=== PATIENT | female | born 1960 | race American Indian/Alaskan Native ===

== ENCOUNTER 2019-09-22 20:01 | Inpatient (IN) | payer OTHER ==
--- NOTE | 2019-09-22 21:07 | Event Note ---
ED Screening Note ED Screening Note: epigastric pain for one day intermittent, hx of hypothyroidism This initial assessment/diagnostic orders/clinical plan/treatment(s) is/are subject to change based on patients health status, clinical progression and re- assessment by fellow clinical providers in the ED. Further treatment and workup at subsequent clinical providers discretion. Patient/guardian urged not to elope from the ED as their condition may be serious if not clinically assessed and managed. Initial orders include: ekg labs
[2019-09-22 21:26] LABS: Basophils % (Auto) 0.6 % (0.0-1.8); Eosinophils # (Auto) 0.5 K/mm3 (0.0-0.4); Eosinophils % (Auto) 7.3 % (0.0-4.3); Hematocrit 35.5 % (30.3-42.9); Hemoglobin 11.6 gm/dl (10.1-14.3); Lymphocytes # (Auto) 1.8 K/mm3 (1.2-5.4); Lymphocytes % (Auto) 28.7 % (13.4-35.0); Mean Corpuscular HGB Conc 33 % (30-34); Mean Corpuscular Volume 84 fl (79-97); Monocytes # (Auto) 0.7 K/mm3 (0.0-0.8); Monocytes % (Auto) 10.5 % (0.0-7.3); Platelet Count 321 K/mm3 (140-440); Red Blood Count 4.24 M/mm3 (3.65-5.03); Red Cell Distribution Width 14.7 % (13.2-15.2)
--- NOTE | 2019-09-22 21:51 | XRay Report ---
CHEST 2 VIEWS, 09/22/2019 9:36 PM INDICATION: Chest pain for 2 days COMPARISON: Chest radiograph, 11/28/2007 FINDINGS: Support devices: None Heart: The heart is normal in size. Lungs/pleura: The lungs are clear of focal airspace disease or significant pleural effusion. Additional findings: No significant acute abnormality. IMPRESSION: 1. No evidence of acute cardiopulmonary process. Signer Name: Theresa Huynh MD Signed: 09/22/2019 9:47 PM Workstation Name: [id number]
[2019-09-22 21:52] LABS: Alanine Aminotransferase 8 units/L (7-56); Albumin 4.6 g/dL (3.9-5); BUN/Creatinine Ratio 17; Blood Urea Nitrogen 15 mg/dL (7-17); Calcium 10.7 mg/dL (8.4-10.2); Hemolysis Index 2
[2019-09-22 22:01] LABS: Bilirubin,Direct < 0.2 mg/dL (0-0.2)
[2019-09-22] MEDS ORDERED: ASPIRIN 325 MG TAB PO ONE (23:09)
[2019-09-22] MEDS ORDERED: NITROGLYCERIN 2% OINT 1 GM TP ONE (23:09)
--- NOTE | 2019-09-22 23:15 | Emergency Department Report ---
HPI - General Chief Complaint: Abdominal Pain Time Seen by Provider: 09/22/19 22:35 - HPI HPI: Room 39 Patient is a 59-year-old female present with a chief complaint of chest pain. The patient states she has had intermittent mid epigastric lower chest pain since 09/19/2019. Patient states feels like an aching/burning pain last approximate 10 minutes and goes away. Patient states each time she has the pain her left upper extremity begins to tingle. Patient denies shortness of breath, nausea/vomiting or diaphoresis. Patient states today the frequency of events increased. Patient states she had a normal stress test last month but has never had a cardiac catheterization ED Past Medical Hx - Past Medical History Previous Medical History?: Yes Additional medical history: Hypothyroidism - Surgical History Past Surgical History?: No - Family History Family history: no significant - Social History Smoking Status: Never Smoker Substance Use Type: None (Denies illicit drug use) ED Review of Systems ROS: Stated complaint: CP/SOB/TINGLE IN L ARM Other details as noted in HPI Constitutional: denies: diaphoresis Eyes: denies: eye pain ENT: denies: throat pain Respiratory: denies: shortness of breath Cardiovascular: chest pain Endocrine: no symptoms reported Gastrointestinal: denies: nausea, vomiting Genitourinary: denies: dysuria Musculoskeletal: denies: back pain Neurological: denies: headache Physical Exam - Physical Exam Vital Signs: Vital Signs 09/22/19 09/22/19 20:17 22:06 Pulse Rate 107 H Respiratory 18 18 Rate Blood Pressure 141/85 O2 Sat by Pulse 100 100 Oximetry Physical Exam: GENERAL: The patient is well-developed well-nourished female lying on stretcher not appear to be in acute distress. [] HEENT: Normocephalic. Atraumatic. Extraocular motions are intact. Patient has moist mucous membranes. NECK: Supple. Trachea midline CHEST/LUNGS: Clear to auscultation. There is no respiratory distress noted. HEART/CARDIOVASCULAR: Regular. There is no tachycardia. There is no gallop rub or murmur. ABDOMEN: Abdomen is soft, nontender. Patient has normal bowel sounds. There is no abdominal distention. SKIN: There is no rash. There is no edema. There is no diaphoresis. NEURO: The patient is awake, alert, and oriented. The patient is cooperative. The patient has normal speech MUSCULOSKELETAL: There is no evidence of acute injury. ED Course Vital Signs 09/22/19 09/22/19 20:17 22:06 Pulse Rate 107 H Respiratory 18 18 Rate Blood Pressure 141/85 O2 Sat by Pulse 100 100 Oximetry ED Medical Decision Making - Lab Data Result diagrams: 09/22/19 21:09 09/22/19 21:09 Laboratory Tests 09/22/19 09/22/19 21:09 21:09 WBC 6.3 RBC 4.24 Hgb 11.6 Hct 35.5 MCV 84 MCH 27 L MCHC 33 RDW 14.7 Plt Count 321 Lymph % (Auto) 28.7 [place] % (Auto) 10.5 H Eos % (Auto) 7.3 H Baso % (Auto) 0.6 Lymph # 1.8 [place] # 0.7 Eos # 0.5 H Baso # 0.0 Seg Neutrophils % 52.9 Seg Neutrophils # 3.3 Sodium 142 Potassium 3.7 Chloride 101.3 Carbon Dioxide 23 Anion Gap 21 BUN 15 Creatinine 0.9 Estimated GFR > 60 BUN/Creatinine Ratio 17 Glucose 143 H Calcium 10.7 H Total Bilirubin 0.30 Direct Bilirubin < 0.2 Indirect Bilirubin 0.1 AST 13 ALT 8 Alkaline Phosphatase 55 Troponin T < 0.010 Total Protein 8.1 Albumin 4.6 Albumin/Globulin Ratio 1.3 Lipase 40 - EKG Data -: EKG Interpreted by Me EKG shows normal: sinus rhythm Rate: normal - EKG Data When compared to previous EKG there are: previous EKG unavailable Interpretation: nonspecific ST-T wave joseph - Radiology Data Radiology results: report reviewed (Chest x-ray), image reviewed (Chest x-ray) interpreted by me: Chest x-ray-no focal infiltrates, no pneumothorax [facility] [address] [place] [address] XRay Report Signed Patient: NAZANIN ANGLIN MR#: [id number] : 1960 Acct:[id number] Age/Sex: 59 / F ADM Date: 09/22/19 Loc: ED Attending Dr: Ordering Physician: Marah Hernández MD Date of Service: 09/22/19 Procedure(s): XR chest routine 2V Accession Number(s): [id number] cc: Marah Hernández MD Fluoro Time In Minutes: CHEST 2 VIEWS, 09/22/2019 9:36 PM INDICATION: Chest pain for 2 days COMPARISON: Chest radiograph, 11/28/2007 FINDINGS: Support devices: None Heart: The heart is normal in size. Lungs/pleura: The lungs are clear of focal airspace disease or significant pleural effusion. Additional findings: No significant acute abnormality. IMPRESSION: 1. No evidence of acute cardiopulmonary process. Signer Name: Theresa Huynh MD Signed: 09/22/2019 9:47 PM Workstation Name: [id number] Transcribed By: EB Dictated By: Theresa Huynh MD Electronically Authenticated By: Theresa Huynh MD Signed Date/Time: 09/22/192146 DD/ 45 TD/TT: - Differential Diagnosis ACS, pericarditis, GERD Critical care attestation.: If time is entered above; I have spent that time in minutes in the direct care of this critically ill patient, excluding procedure time. ED Disposition Clinical Impression: Chest pain Disposition: -09 OP ADMIT IP TO THIS HOSP Is pt being admited?: Yes Does the pt Need Aspirin: Yes Condition: Fair Instructions: Abdominal Pain (ED), Chest Pain (ED) Time of Disposition: 23:16 (Hospitalist paged (Dr. Nkechi Laguerre))
--- NOTE | 2019-09-22 23:31 | History and Physical Report ---
History of Present Illness History of present illness: 59-year-old woman with a history of hypothyroidism comes emergency room with complaints of chest pain that started 2 days ago. Pain is in the epigastric area which she described as a achy burning sensation, was intermittent but has now become constant, intensity 4/10, no radiation, cannot identify exacerbating or relieving factors. Admits to palpitation, no nausea vomiting, shortness of breath, diaphoresis. Patient states she had a stress test 1 month ago while she was in [place], test was negative Review Of Systems: Constitutional: no weight loss, fever, chills Ears, eyes, nose, mouth and throat: no nasal congestion, no nasal discharge, no sinus pressure, blurry vision, diplopia Neck: No neck pain or rigidity. Cardiovascular: + palpitations, chest pain Respiratory: No shortness of breath, cough Gastrointestinal: No hematochezia Genitourinary : no dysuria, frequency Musculoskeletal: no muscle ache , joint pain Integumentary: no rash, no pruritis Neurological: no parathesias, focal weakness Endocrine: no cold or heat intolerance, no polyuria or polydipsia Hematologic/Lymphatic: no easy bruising, no easy bleeding, no gland swelling Allergic/Immunologic: no urticaria, no angioedema. PAST MEDICAL HISTORY: hypothyroidism PAST SURGICAL HISTORY: None SOCIAL HISTORY: Denies alcohol, tobacco, drugs FAMILY HISTORY: Hypertension Medications and Allergies Allergies Allergy/AdvReac Type Severity Reaction Status Date / Time No Known Allergies Allergy Verified 09/22/19 20:15 Exam - Physical Exam Narrative exam: Gen. appearance: Patient lying in bed, no apparent distress HEENT: Normocephalic, atraumatic, pupils equally round and reactive to light, extraocular movement intact, and no sclericterus,. No JVD or thyromegaly or nodule,neck supple, no carotid bruit ,mucous membranes moist, no exudate or erythema Heart: S1, S2, regular rate and rhythm Lungs: Clear bilaterally, breathing comfortable Abdomen: Positive bowel sounds, nontender, nondistended, no organomegaly Extremity: no edema, cyanosis, clubbing Skin: No rash, nodules, warm, dry Neuro: speech is fluent, cranial nerves II to XII intact, motor and sensory intact - Constitutional Vitals: Temp Pulse Resp BP Pulse Ox 107 H 18 141/85 100 09/22/19 20:17 09/22/19 22:06 09/22/19 20:17 09/22/19 22:06 Results - Labs CBC & Chem 7: 09/22/19 21:09 09/22/19 21:09 Labs: Abnormal lab results 09/22/19 09/22/19 Range/Units 21:09 21:09 MCH 27 L (28-32) pg [place] % (Auto) 10.5 H (0.0-7.3) % Eos % (Auto) 7.3 H (0.0-4.3) % Eos # 0.5 H (0.0-0.4) K/mm3 Glucose 143 H (65-100) mg/dL Calcium 10.7 H (8.4-10.2) mg/dL - Imaging and Cardiology EKG: image reviewed Chest x-ray: report reviewed Assessment and Plan Assessment Chest pain Check cardiac enzymes, consult cardiology Start aspirin, morphine Hypothyroidism Continue outpatient medications DVT prophylaxis
[2019-09-22] MEDS ORDERED: ACETAMINOPHEN 325 MG TAB PO PRN (23:48)
[2019-09-22] MEDS ORDERED: MORPHINE 2 MG/1 ML INJ IV PRN (23:48)
[2019-09-22] MEDS ORDERED: ONDANSETRON 4 MG/2 ML INJ IV PRN (23:48)
[2019-09-23 00:31] LABS: Creatine Kinase MB 3.1 ng/mL (0.0-4.0)
[2019-09-23] MEDS ORDERED: ASPIRIN 325 MG TAB ONE (01:12)
[2019-09-23 05:45] LABS: Basophils % (Auto) 0.4 % (0.0-1.8); Eosinophils # (Auto) 0.5 K/mm3 (0.0-0.4); Eosinophils % (Auto) 8.4 % (0.0-4.3); Hematocrit 33.6 % (30.3-42.9); Hemoglobin 11.1 gm/dl (10.1-14.3); Lymphocytes # (Auto) 2.2 K/mm3 (1.2-5.4); Lymphocytes % (Auto) 40.8 % (13.4-35.0); Mean Corpuscular HGB Conc 33 % (30-34); Mean Corpuscular Volume 83 fl (79-97); Monocytes # (Auto) 0.8 K/mm3 (0.0-0.8); Monocytes % (Auto) 13.7 % (0.0-7.3); Platelet Count 263 K/mm3 (140-440); Red Blood Count 4.03 M/mm3 (3.65-5.03); Red Cell Distribution Width 14.3 % (13.2-15.2)
[2019-09-23 05:59] LABS: Creatine Kinase MB 3.7 ng/mL (0.0-4.0)
[2019-09-23 06:07] LABS: BUN/Creatinine Ratio 18; Blood Urea Nitrogen 14 mg/dL (7-17); Calcium 10.8 mg/dL (8.4-10.2); Hemolysis Index 3
[2019-09-23 06:20] LABS: Chol/HDL Ratio 4.34 %
[2019-09-23] MEDS ORDERED: ENOXAPARIN 30 MG/0.3 ML INJ SUB-Q SCH (10:00)
[2019-09-23] MEDS: ENOXAPARIN 40 MG/0.4 ML INJ SUB-Q SCH (10:03)
[2019-09-23] MEDS: ASPIRIN 81 MG TAB CHEW PO SCH (10:03)
--- NOTE | 2019-09-23 13:05 | Discharge Summary ---
Providers - Providers Date of Admission: 09/22/19 23:30 Date of discharge: 09/23/19 Attending physician: MYRIAM SOTO 09/22/19 23:48 Consult to Physician [CONS] Routine Comment: Consulting Provider: SIMRAN RODRIGUEZ Physician Instructions: Reason For Exam: cp Primary care physician: HOSPICE SOCIAL WORKER Hospitalization Condition: Stable Hospital course: Patient is a 59-year-old woman with a history of hypothyroidism who presents with epigastric/lower chest pains with acid reflux. She has tried Tums and Apple cider Vinegar without relief. She had same pains in [place] and underwent a stress Test, [place], [place], went was negative per patient. Patient continued to have chest pains despite PPI therapy, so she underwent Stress test which was unremarkable. Discharge Diagnoses: Chest pains, most likely GERD, treat with PPI Hypothyroidism Disposition: DC-01 TO HOME OR SELFCARE Time spent for discharge: 36 minutes Core Measure Documentation - Palliative Care Palliative Care/ Comfort Measures: Not Applicable - Core Measures Any of the following diagnoses?: none - VTE Discharge Requirements Deep Vein Thrombosis/Pulmonary Embolism Present on Admission: No Has pt received <5 days of overlap therapy or INR<2.0: No Anticoagulant overlap therapy prescribed at discharge: No Contraindication No Overlap Therapy order at DC: Not Indicated Exam - Physical Exam Narrative exam: Gen: WDWN, NAD, Awake, Alert, Orientated HEENT: NCAT, EOMI, PERRL, OP Clear Neck: supple, no adenopathy, no thyromegaly, no JVD CVS/Heart: RRR, normal S1S2, pulses present bilaterally Chest/Lungs: CTA B, Symmetrical chest expansion, good air entry bilaterally GI/Abdomen: soft, very mild epigastric tenderness with deep touch, NT, good bowel sounds, no guarding or rebound /Bladder: no suprapubic tenderness, no CVA or paraspinal tenderness Extermity/Skin: no c/c/e, no obvious rash MSK: FROM x 4 Neuro: CN 2-12 grossly intact, no new focal deficits Psych: calm - Constitutional Vitals: Temp Pulse Resp BP Pulse Ox 98.3 F 86 18 115/79 99 09/23/19 11:36 09/23/19 11:36 09/23/19 11:36 09/23/19 11:36 09/23/19 11:36 Plan Activity: other (no strenous activity unless cleared by PCP) Diet: regular Special Instructions: record daily BP diary Additional Instructions: Check your TSH with PCP. see GI Doctor Follow up with: EVELYN LOTT MD [Staff Physician] - 7 Days KRISSY CEJA MD [Staff Physician] - 14 Days ANGELICA WHEAT MD [Staff Physician] - 10 Days Prescriptions: AtorvaSTATin [Lipitor] 40 mg PO QHS #30 tablet carvediloL [Coreg] 3.125 mg PO BID #60 tablet Pantoprazole [Protonix TAB] 40 mg PO QDAY #60 tablet
--- NOTE | 2019-09-23 13:10 | Progress Note ---
Assessment and Plan Assessment and plan: Patient is a 59-year-old woman with a history of hypothyroidism who presents with epigastric/lower chest pains. She has tried Tums and Apple cider Vinegar without relief. She had similar pains in [place], [place] and underwent a stress Test, which was negative per patient. Chest pains, most likely GERD, however, recurrent CP is suspicious: treat with PPI Troponin T turned positive: [facility], need stress results from [place] Hypothyroidism; check TSH Hospitalist Physical - Physical exam Narrative exam: Gen: WDWN, NAD, Awake, Alert, Orientated HEENT: NCAT, EOMI, PERRL, OP Clear Neck: supple, no adenopathy, no thyromegaly, no JVD CVS/Heart: RRR, normal S1S2, pulses present bilaterally Chest/Lungs: CTA B, Symmetrical chest expansion, good air entry bilaterally GI/Abdomen: soft, very mild epigastric tenderness with deep touch, NT, good bowel sounds, no guarding or rebound /Bladder: no suprapubic tenderness, no CVA or paraspinal tenderness Extermity/Skin: no c/c/e, no obvious rash MSK: FROM x 4 Neuro: CN 2-12 grossly intact, no new focal deficits Psych: calm - Constitutional Vitals: Temp Pulse Resp BP Pulse Ox 98.3 F 86 18 115/79 99 09/23/19 11:36 09/23/19 11:36 09/23/19 11:36 09/23/19 11:36 09/23/19 11:36 Results - Labs CBC & Chem 7: 09/23/19 04:57 09/23/19 04:57 Labs: Laboratory Last Values WBC 5.5 K/mm3 (4.5-11.0) 09/23/19 04:57 RBC 4.03 M/mm3 (3.65-5.03) 09/23/19 04:57 Hgb 11.1 gm/dl (10.1-14.3) 09/23/19 04:57 Hct 33.6 % (30.3-42.9) 09/23/19 04:57 MCV 83 fl (79-97) 09/23/19 04:57 MCH 28 pg (28-32) 09/23/19 04:57 MCHC 33 % (30-34) 09/23/19 04:57 RDW 14.3 % (13.2-15.2) 09/23/19 04:57 Plt Count 263 K/mm3 (140-440) 09/23/19 04:57 Lymph % (Auto) 40.8 % (13.4-35.0) H 09/23/19 04:57 [place] % (Auto) 13.7 % (0.0-7.3) H 09/23/19 04:57 Eos % (Auto) 8.4 % (0.0-4.3) H 09/23/19 04:57 Baso % (Auto) 0.4 % (0.0-1.8) 09/23/19 04:57 Lymph # 2.2 K/mm3 (1.2-5.4) 09/23/19 04:57 [place] # 0.8 K/mm3 (0.0-0.8) 09/23/19 04:57 Eos # 0.5 K/mm3 (0.0-0.4) H 09/23/19 04:57 Baso # 0.0 K/mm3 (0.0-0.1) 09/23/19 04:57 Seg Neutrophils % 36.7 % (40.0-70.0) L 09/23/19 04:57 Seg Neutrophils # 2.0 K/mm3 (1.8-7.7) 09/23/19 04:57 Sodium 143 mmol/L (137-145) 09/23/19 04:57 Potassium 3.8 mmol/L (3.6-5.0) 09/23/19 04:57 Chloride 103.8 mmol/L (98-107) 09/23/19 04:57 Carbon Dioxide 24 mmol/L (22-30) 09/23/19 04:57 Anion Gap 19 mmol/L 09/23/19 04:57 BUN 14 mg/dL (7-17) 09/23/19 04:57 Creatinine 0.8 mg/dL (0.7-1.2) 09/23/19 04:57 Estimated GFR > 60 ml/min 09/23/19 04:57 BUN/Creatinine Ratio 18 % 09/23/19 04:57 Glucose 124 mg/dL (65-100) H 09/23/19 04:57 Calcium 10.8 mg/dL (8.4-10.2) H 09/23/19 04:57 Total Bilirubin 0.30 mg/dL (0.1-1.2) 09/22/19 21:09 Direct Bilirubin < 0.2 mg/dL (0-0.2) 09/22/19 21:09 Indirect Bilirubin 0.1 mg/dL 09/22/19 21:09 AST 13 units/L (5-40) 09/22/19 21:09 ALT 8 units/L (7-56) 09/22/19 21:09 Alkaline Phosphatase 55 units/L (35-129) 09/22/19 21:09 Total Creatine Kinase 81 units/L (30-135) 09/23/19 04:57 CK-MB (CK-2) 3.7 ng/mL (0.0-4.0) 09/23/19 04:57 CK-MB (CK-2) Rel Index 4.5 (0-4) H 09/23/19 04:57 Troponin T 0.037 ng/mL (0.00-0.029) H D 09/23/19 04:57 Total Protein 8.1 g/dL (6.3-8.2) 09/22/19 21:09 Albumin 4.6 g/dL (3.9-5) 09/22/19 21:09 Albumin/Globulin Ratio 1.3 % 09/22/19 21:09 Triglycerides 78 mg/dL (2-149) 09/23/19 04:57 Cholesterol 178 mg/dL (50-199) 09/23/19 04:57 LDL Cholesterol Direct 129 mg/dL (50-130) 09/23/19 04:57 HDL Cholesterol 41 mg/dL (40-59) 09/23/19 04:57 Cholesterol/HDL Ratio 4.34 % 09/23/19 04:57 Lipase 40 units/L (13-60) 09/22/19 21:09 Active Medications - Current Medications Current Medications: Generic Name Dose Route Start Last Admin Trade Name Freq PRN Reason Stop Dose Admin Acetaminophen 650 mg 09/22/19 23:48 Tylenol PO Q4H PRN Pain MILD(1-3)/Fever >100.5/HARRIS Aspirin 81 mg 09/23/19 10:00 09/23/19 10:03 Baby Aspirin PO 81 mg DAILY ARTEMIO Administration Enoxaparin Sodium 40 mg 09/23/19 10:00 09/23/19 10:03 Enoxaparin SUB-Q 40 mg QDAY@1000 ARTEMIO Administration Morphine Sulfate 2 mg 09/22/19 23:48 Morphine IV Q4H PRN Pain, Moderate (4-6) Ondansetron HCl 4 mg 09/22/19 23:48 Zofran IV Q8H PRN Nausea And Vomiting Sodium Chloride 10 ml 09/23/19 10:00 09/23/19 10:03 Sodium Chloride Flush Syringe 10 Ml IV 10 ml BID ARTEMIO Administration Sodium Chloride 10 ml 09/22/19 23:48 Sodium Chloride Flush Syringe 10 Ml IV PRN PRN LINE FLUSH
[2019-09-23] MEDS ORDERED: hydroCHLOROthiazide 12.5 MG CAP PO SCH (14:00)
[2019-09-23] MEDS: FAMOTIDINE 20 MG TAB PO SCH ×2 (14:10→21:14)
--- NOTE | 2019-09-23 14:13 | Consultation ---
History of Present Illness Consult date: 09/23/19 Consult reason: abnormal cardiac enzymes (This is a 59-year-old female with a past medical history of hypothyroidism who presented to [facility] emergency department complaining of intermittent chest pain with associated left arm tingling and left arm and jaw pain. The patient reports that when the pain comes it persist for about 10 minutes and then subsides. She reports that she has been having this pain intermittently for 1 week. She also reports that she had an exercise treadmill test in [place] and was told that it was -1-month ago. A 12-lead EKG in the emergency department revealed sinus rhythm with no significant ST segment changes. The patient's first set of cardiac enzymes were negative however they have continue to trend upward 0.015, 0.037.), chest pain History of present illness: This is a 59-year-old female with a past medical history of hypothyroidism who presented to [facility] emergency department complaining of intermittent chest pain with associated left arm tingling and left arm and jaw pain. The patient reports that when the pain comes it persist for about 10 minutes and then subsides. She reports that she has been having this pain intermittently for 1 week. She also reports that she had an exercise treadmill test in [place] and was told that it was -1-month ago. A 12-lead EKG in the emergency department revealed sinus rhythm with no significant ST segment changes. The patient's first set of cardiac enzymes were negative however they have continue to trend upward 0.015, 0.037. Past History Past Medical History: hypothyroidism Past Surgical History: No surgical history Social history: denies: smoking, alcohol abuse, prescription drug abuse Family history: denies: no significant family history Medications and Allergies Allergies Allergy/AdvReac Type Severity Reaction Status Date / Time No Known Allergies Allergy Verified 09/22/19 20:15 Home Medications Medication Instructions Recorded Confirmed Last Taken Type Levothyroxine [Synthroid] 125 mcg PO QAM 09/23/19 09/23/19 09/23/19 01:02 History hydroCHLOROthiazide 12.5 mg PO PRN 09/23/19 09/23/19 06/08/19 08:00 History [Hydrochlorothiazide] Active Meds: Active Medications Acetaminophen (Tylenol) 650 mg PO Q4H PRN PRN Reason: Pain MILD(1-3)/Fever >100.5/HARRIS Aspirin (Baby Aspirin) 81 mg PO DAILY [facility] Last Admin: 09/23/19 10:03 Dose: 81 mg Documented by: Atorvastatin Calcium (Lipitor) 80 mg PO QHS [facility] Carvedilol (Coreg) 3.125 mg PO BID [facility] Enoxaparin Sodium (Enoxaparin) 40 mg SUB-Q QDAY@1000 [facility] Last Admin: 09/23/19 10:03 Dose: 40 mg Documented by: Famotidine (Pepcid) 20 mg PO BID [facility] Levothyroxine Sodium (Synthroid) 125 mcg PO QAM [facility] Morphine Sulfate (Morphine) 2 mg IV Q4H PRN PRN Reason: Pain, Moderate (4-6) Ondansetron HCl (Zofran) 4 mg IV Q8H PRN PRN Reason: Nausea And Vomiting Pantoprazole Sodium (Protonix) 40 mg PO QDAY [facility] Sodium Chloride (Sodium Chloride Flush Syringe 10 Ml) 10 ml IV BID [facility] Last Admin: 09/23/19 10:03 Dose: 10 ml Documented by: Sodium Chloride (Sodium Chloride Flush Syringe 10 Ml) 10 ml IV PRN PRN PRN Reason: LINE FLUSH Review of Systems Constitutional: no weight loss, no weight gain, no fever Ears, nose, mouth and throat: deferred Breasts: deferred Cardiovascular: chest pain, palpitations, no orthopnea, no edema, no syncope, no dyspnea on exertion Respiratory: no cough with sputum, no excessive sputum, no shortness of breath Gastrointestinal: no abdominal pain, no nausea, no vomiting Genitourinary Female: no pelvic pain, no flank pain Rectal: no pain, no incontinence Musculoskeletal: no neck stiffness, no neck pain Integumentary: no rash, no pruritis Neurological: no head injury, no transient paralysis Psychiatric: no anxiety, no memory loss Endocrine: no cold intolerance, no heat intolerance Hematologic/Lymphatic: no easy bruising, no easy bleeding Allergic/Immunologic: no urticaria, no allergic rhinitis Physical Examination Vital Signs Pulse Resp BP Pulse Ox 107 H 18 141/85 100 09/22/19 20:17 09/22/19 20:17 09/22/19 20:17 09/22/19 20:17 General appearance: no acute distress HEENT: Positive: PERRL, EOMI Neck: Positive: neck supple, trachea midline Cardiac: Positive: Reg Rate and Rhythm Lungs: Positive: Normal Exam, clear to auscultation, Normal Breath Sounds Neuro: Positive: Grossly Intact, Cranial Nerve 2-12 Intact Abdomen: Positive: Soft, Active Bowel Sounds Female genitourinary: deferred Skin: Positive: Clear. Negative: Rash Extremities: Present: normal, warm. Absent: edema Results 09/23/19 04:57 09/23/19 04:57 Cardiac Enzymes 09/22/19 09/23/19 09/23/19 Range/Units 21:09 00:02 04:57 AST 13 (5-40) units/L CK-MB (CK-2) 3.1 3.7 (0.0-4.0) ng/mL Lipids 09/23/19 Range/Units 04:57 Triglycerides 78 (2-149) mg/dL Cholesterol 178 (50-199) mg/dL HDL Cholesterol 41 (40-59) mg/dL Cholesterol/HDL Ratio 4.34 % CBC 09/22/19 09/23/19 Range/Units 21:09 04:57 WBC 6.3 5.5 (4.5-11.0) K/mm3 RBC 4.24 4.03 (3.65-5.03) M/mm3 Hgb 11.6 11.1 (10.1-14.3) gm/dl Hct 35.5 33.6 (30.3-42.9) % Plt Count 321 263 (140-440) K/mm3 Lymph # 1.8 2.2 (1.2-5.4) K/mm3 [place] # 0.7 0.8 (0.0-0.8) K/mm3 Eos # 0.5 H 0.5 H (0.0-0.4) K/mm3 Baso # 0.0 0.0 (0.0-0.1) K/mm3 Comprehensive Metabolic Panel 09/22/19 09/23/19 Range/Units 21:09 04:57 Sodium 142 143 (137-145) mmol/L Potassium 3.7 3.8 (3.6-5.0) mmol/L Chloride 101.3 103.8 (98-107) mmol/L Carbon Dioxide 23 24 (22-30) mmol/L BUN 15 14 (7-17) mg/dL Creatinine 0.9 0.8 (0.7-1.2) mg/dL Glucose 143 H 124 H (65-100) mg/dL Calcium 10.7 H 10.8 H (8.4-10.2) mg/dL Direct Bilirubin < 0.2 (0-0.2) mg/dL Indirect Bilirubin 0.1 mg/dL AST 13 (5-40) units/L ALT 8 (7-56) units/L Alkaline Phosphatase 55 (35-129) units/L Total Protein 8.1 (6.3-8.2) g/dL Albumin 4.6 (3.9-5) g/dL EKG interpretations - Telemetry EKG Rhythm: Sinus Rhythm Assessment and Plan 59-year-old female Hypothyroidism Recurrent chest pain (recent negative exercise treadmill test in [place]) NSTEMI Patient currently chest pain-free Continue to trend cardiac troponins Continue aspirin/statin Recommend echocardiogram Plan for stress test versus left heart cath Wednesday
[2019-09-23] MEDS: PANTOPRAZOLE 40 MG TAB PO SCH (14:25)
[2019-09-23] MEDS: carvediloL 3.125 MG TAB PO SCH ×2 (14:45→21:14)
[2019-09-24 06:51] LABS: Hematocrit 33.9 % (30.3-42.9); Hemoglobin 11.1 gm/dl (10.1-14.3); Mean Corpuscular HGB Conc 33 % (30-34); Mean Corpuscular Volume 84 fl (79-97); Platelet Count 247 K/mm3 (140-440); Red Blood Count 4.02 M/mm3 (3.65-5.03); Red Cell Distribution Width 14.4 % (13.2-15.2)
[2019-09-24 07:07] LABS: BUN/Creatinine Ratio 13; Blood Urea Nitrogen 10 mg/dL (7-17); Calcium 9.8 mg/dL (8.4-10.2); Hemolysis Index 2
[2019-09-24] MEDS: ASPIRIN 81 MG TAB CHEW PO SCH (11:16)
[2019-09-24] MEDS: LEVOTHYROXINE 125 MCG TAB PO SCH (11:16)
[2019-09-24] MEDS: PANTOPRAZOLE 40 MG TAB PO SCH (11:16)
[2019-09-24] MEDS: FAMOTIDINE 20 MG TAB PO SCH ×2 (11:16→21:24)
[2019-09-24] MEDS: carvediloL 3.125 MG TAB PO SCH ×2 (11:16→21:25)
[2019-09-24] MEDS: ENOXAPARIN 40 MG/0.4 ML INJ SUB-Q SCH (11:16)
--- NOTE | 2019-09-24 12:58 | Progress Note ---
Assessment and Plan 59-year-old female Hypothyroidism Recurrent chest pain (recent negative exercise treadmill test in [place]) NSTEMI recurrent chest pain 4am this morning No EKG changes Continue to trend cardiac troponins (0.015->0.037->0.030->0.027) Continue aspirin/statin If enzymes continue to trend down plan for stress test Wednesday Subjective Date of service: 09/24/19 Interval history: Pt sitting up in bed eating lunch. She reports she had a reoccurrence of the chest pain 3 am. No EKG completed. She was given morphine with mild improvement of symptoms. Objective Vital Signs Temp Pulse Resp BP Pulse Ox 09/24/19 11:38 80 09/24/19 10:00 117 H 09/24/19 07:27 98.2 F 87 18 100/70 100 09/24/19 04:52 98.0 F 81 18 127/84 99 09/23/19 23:49 98.0 F 80 18 105/59 99 09/23/19 22:00 78 09/23/19 19:33 98.8 F 85 18 111/76 99 09/23/19 16:33 87 114/73 97 09/23/19 16:23 98.4 F 89 18 113/74 96 09/23/19 15:39 96 09/23/19 14:45 85 114/73 - Physical Examination HEENT: Positive: PERRL, EOMI Neck: Positive: neck supple, trachea midline Cardiac: Positive: Reg Rate and Rhythm Lungs: Positive: Normal Breath Sounds Neuro: Positive: Grossly Intact, Cranial Nerve 2-12 Intact Abdomen: Positive: Soft, Active Bowel Sounds Skin: Positive: Clear. Negative: Rash Extremities: Present: normal, warm. Absent: edema - Labs and Meds CBC 09/24/19 Range/Units 05:47 WBC 5.1 (4.5-11.0) K/mm3 RBC 4.02 (3.65-5.03) M/mm3 Hgb 11.1 (10.1-14.3) gm/dl Hct 33.9 (30.3-42.9) % Plt Count 247 (140-440) K/mm3 Comprehensive Metabolic Panel 09/24/19 Range/Units 05:47 Sodium 139 (137-145) mmol/L Potassium 3.8 (3.6-5.0) mmol/L Chloride 101.6 (98-107) mmol/L Carbon Dioxide 24 (22-30) mmol/L BUN 10 (7-17) mg/dL Creatinine 0.8 (0.7-1.2) mg/dL Glucose 126 H (65-100) mg/dL Calcium 9.8 (8.4-10.2) mg/dL - Imaging and Cardiology EKG: image reviewed Echo: report reviewed (ECHO 09/24/2019: EF 50-55%)
--- NOTE | 2019-09-24 15:21 | Progress Note ---
Assessment and Plan Assessment and plan: Patient is a 59-year-old woman with a history of hypothyroidism who presents with epigastric/lower chest pains. She has tried Tums and Apple cider Vinegar without relief. She had similar pains in [place], [place] and underwent a stress Test, which was negative per patient. Chest pains, most likely GERD, however, recurrent CP: treat with PPI, stress test in AM Troponin T turned positive and plateau: Cardiology following Hypothyroidism; check TSH History Interval history: Patient was seen and examined. Follow-up on current diagnosis of CP, recurred at 4am this morning. Overnight uneventful as no events directly reported to me. Patient denies any shortness breath, nausea/vomiting or severe headaches. Imaging, nursing note, chart, labs and old chart reviewed. Discussed with lucas camargo Hospitalist Physical - Physical exam Narrative exam: Gen: WDWN, NAD, Awake, Alert, Orientated HEENT: NCAT, EOMI, PERRL, OP Clear Neck: supple, no adenopathy, no thyromegaly, no JVD CVS/Heart: RRR, normal S1S2, pulses present bilaterally Chest/Lungs: CTA B, Symmetrical chest expansion, good air entry bilaterally GI/Abdomen: soft, very mild epigastric tenderness with deep touch, NT, good bowel sounds, no guarding or rebound /Bladder: no suprapubic tenderness, no CVA or paraspinal tenderness Extermity/Skin: no c/c/e, no obvious rash MSK: FROM x 4 Neuro: CN 2-12 grossly intact, no new focal deficits Psych: calm - Constitutional Vitals: Temp Pulse Resp BP Pulse Ox 98.2 F 80 18 100/70 100 09/24/19 07:27 09/24/19 11:38 09/24/19 07:27 09/24/19 07:27 09/24/19 07:27 General appearance: Present: no acute distress Results - Labs CBC & Chem 7: 09/24/19 05:47 09/24/19 05:47 Labs: Laboratory Last Values WBC 5.1 K/mm3 (4.5-11.0) 09/24/19 05:47 RBC 4.02 M/mm3 (3.65-5.03) 09/24/19 05:47 Hgb 11.1 gm/dl (10.1-14.3) 09/24/19 05:47 Hct 33.9 % (30.3-42.9) 09/24/19 05:47 MCV 84 fl (79-97) 09/24/19 05:47 MCH 28 pg (28-32) 09/24/19 05:47 MCHC 33 % (30-34) 09/24/19 05:47 RDW 14.4 % (13.2-15.2) 09/24/19 05:47 Plt Count 247 K/mm3 (140-440) 09/24/19 05:47 Lymph % (Auto) 40.8 % (13.4-35.0) H 09/23/19 04:57 [place] % (Auto) 13.7 % (0.0-7.3) H 09/23/19 04:57 Eos % (Auto) 8.4 % (0.0-4.3) H 09/23/19 04:57 Baso % (Auto) 0.4 % (0.0-1.8) 09/23/19 04:57 Lymph # 2.2 K/mm3 (1.2-5.4) 09/23/19 04:57 [place] # 0.8 K/mm3 (0.0-0.8) 09/23/19 04:57 Eos # 0.5 K/mm3 (0.0-0.4) H 09/23/19 04:57 Baso # 0.0 K/mm3 (0.0-0.1) 09/23/19 04:57 Seg Neutrophils % 36.7 % (40.0-70.0) L 09/23/19 04:57 Seg Neutrophils # 2.0 K/mm3 (1.8-7.7) 09/23/19 04:57 Sodium 139 mmol/L (137-145) 09/24/19 05:47 Potassium 3.8 mmol/L (3.6-5.0) 09/24/19 05:47 Chloride 101.6 mmol/L (98-107) 09/24/19 05:47 Carbon Dioxide 24 mmol/L (22-30) 09/24/19 05:47 Anion Gap 17 mmol/L 09/24/19 05:47 BUN 10 mg/dL (7-17) 09/24/19 05:47 Creatinine 0.8 mg/dL (0.7-1.2) 09/24/19 05:47 Estimated GFR > 60 ml/min 09/24/19 05:47 BUN/Creatinine Ratio 13 % 09/24/19 05:47 Glucose 126 mg/dL (65-100) H 09/24/19 05:47 Calcium 9.8 mg/dL (8.4-10.2) 09/24/19 05:47 Total Bilirubin 0.30 mg/dL (0.1-1.2) 09/22/19 21:09 Direct Bilirubin < 0.2 mg/dL (0-0.2) 09/22/19 21:09 Indirect Bilirubin 0.1 mg/dL 09/22/19 21:09 AST 13 units/L (5-40) 09/22/19 21:09 ALT 8 units/L (7-56) 09/22/19 21:09 Alkaline Phosphatase 55 units/L (35-129) 09/22/19 21:09 Total Creatine Kinase 81 units/L (30-135) 09/23/19 04:57 CK-MB (CK-2) 3.7 ng/mL (0.0-4.0) 09/23/19 04:57 CK-MB (CK-2) Rel Index 4.5 (0-4) H 09/23/19 04:57 Troponin T 0.027 ng/mL (0.00-0.029) 09/24/19 00:24 Total Protein 8.1 g/dL (6.3-8.2) 09/22/19 21:09 Albumin 4.6 g/dL (3.9-5) 09/22/19 21:09 Albumin/Globulin Ratio 1.3 % 09/22/19 21:09 Triglycerides 78 mg/dL (2-149) 09/23/19 04:57 Cholesterol 178 mg/dL (50-199) 09/23/19 04:57 LDL Cholesterol Direct 129 mg/dL (50-130) 09/23/19 04:57 HDL Cholesterol 41 mg/dL (40-59) 09/23/19 04:57 Cholesterol/HDL Ratio 4.34 % 09/23/19 04:57 Lipase 40 units/L (13-60) 09/22/19 21:09 Active Medications - Current Medications Current Medications: Generic Name Dose Route Start Last Admin Trade Name Freq PRN Reason Stop Dose Admin Acetaminophen 650 mg 09/22/19 23:48 Tylenol PO Q4H PRN Pain MILD(1-3)/Fever >100.5/HARRIS Aspirin 81 mg 09/23/19 10:00 09/24/19 11:16 Baby Aspirin PO 81 mg DAILY ARTEMIO Administration Atorvastatin Calcium 80 mg 09/23/19 22:00 09/23/19 21:14 Lipitor PO 80 mg QHS ARTEMIO Administration Carvedilol 3.125 mg 09/23/19 14:00 09/24/19 11:16 Coreg PO 3.125 mg BID ARTEMIO Administration Enoxaparin Sodium 40 mg 09/23/19 10:00 09/24/19 11:16 Enoxaparin SUB-Q 40 mg QDAY@1000 [facility] Administration Famotidine 20 mg 09/23/19 14:00 09/24/19 11:16 Pepcid PO 20 mg BID [facility] Administration Levothyroxine Sodium 125 mcg 09/24/19 10:00 09/24/19 11:16 Synthroid PO 125 mcg QAM ARTEMIO Administration Morphine Sulfate 2 mg 09/22/19 23:48 09/24/19 04:49 Morphine IV 2 mg Q4H PRN Administration Pain, Moderate (4-6) Ondansetron HCl 4 mg 09/22/19 23:48 09/24/19 04:51 Zofran IV 4 mg Q8H PRN Administration Nausea And Vomiting Pantoprazole Sodium 40 mg 09/23/19 14:00 09/24/19 11:16 Protonix PO 40 mg QDAY ARTEMIO Administration Sodium Chloride 10 ml 09/23/19 10:00 09/24/19 11:58 Sodium Chloride Flush Syringe 10 Ml IV Not Given BID ARTEMIO Sodium Chloride 10 ml 09/22/19 23:48 Sodium Chloride Flush Syringe 10 Ml IV PRN PRN LINE FLUSH
[2019-09-24] MEDS ORDERED: MAGNESIUM HYDROXIDE (MOM) ORAL LIQD UDC PO PRN (20:24)
[2019-09-24] MEDS: DOCUSATE SODIUM 100 MG CAP PO SCH (21:24)
[2019-09-25 06:44] LABS: BUN/Creatinine Ratio 14; Blood Urea Nitrogen 11 mg/dL (7-17); Calcium 9.6 mg/dL (8.4-10.2); Hemolysis Index 3
[2019-09-25] MEDS ORDERED: REGADENOSON 0.4 MG/5 ML INJ IV ONE ×2 (08:20→08:25)
[2019-09-25] MEDS ORDERED: POTASSIUM CHLORIDE ER 20 MEQ TAB PO ONE (11:30)
--- NOTE | 2019-09-25 11:43 | Progress Note ---
Assessment and Plan 59-year-old female Hypothyroidism Recurrent chest pain (recent negative exercise treadmill test in [place]) Elevated troponin tte reviewed - EF 50-55%, no significant abnormalities. S/p lexiscan MPI stress test today which was negative. Currently stable cardiac status. chest pain currently resolved. pt may discharge from cardiology standpoint. recommend follow up in our office with Dr. Bell within 1-2 weeks of discharge ([phone] The patient has been seen in conjunction with Dr. Cal Charlton who agrees with the assessment and plan of care. Subjective Date of service: 09/25/19 Principal diagnosis: cp Interval history: pt for stress test. no current complaints. in SR on tele. Objective Last Vital Signs Temp 98.1 F 09/25/19 08:02 Pulse 102 H 09/25/19 09:36 Resp 19 09/25/19 08:02 BP 158/91 09/25/19 09:49 Pulse Ox 92 09/25/19 08:02 - Physical Examination General: No Apparent Distress HEENT: Positive: PERRL, EOMI Neck: Positive: neck supple, trachea midline Cardiac: Positive: Reg Rate and Rhythm, S1/S2 Lungs: Positive: Decreased Breath Sounds Neuro: Positive: Grossly Intact, Cranial Nerve 2-12 Intact Abdomen: Positive: Soft, Active Bowel Sounds Skin: Positive: Clear. Negative: Rash Extremities: Present: normal, warm. Absent: edema - Labs and Meds Comprehensive Metabolic Panel 09/25/19 Range/Units 05:03 Sodium 140 (137-145) mmol/L Potassium 3.5 L (3.6-5.0) mmol/L Chloride 101.2 (98-107) mmol/L Carbon Dioxide 24 (22-30) mmol/L BUN 11 (7-17) mg/dL Creatinine 0.8 (0.7-1.2) mg/dL Glucose 141 H (65-100) mg/dL Calcium 9.6 (8.4-10.2) mg/dL - Imaging and Cardiology EKG: image reviewed Echo: report reviewed (ECHO 09/24/2019: EF 50-55%)
[2019-09-25] MEDS: FAMOTIDINE 20 MG TAB PO SCH (13:32)
[2019-09-25] MEDS: carvediloL 3.125 MG TAB PO SCH (13:33)
[2019-09-25] MEDS: PANTOPRAZOLE 40 MG TAB PO SCH (13:33)
[2019-09-25] MEDS: ASPIRIN 81 MG TAB CHEW PO SCH (13:33)
[2019-09-25] MEDS: LEVOTHYROXINE 125 MCG TAB PO SCH (13:33)
[2019-09-25] MEDS: DOCUSATE SODIUM 100 MG CAP PO SCH (13:33)
--- NOTE | 2019-09-25 13:43 | Treadmill Report ---
NUCLEAR STRESS TEST REFERRING PHYSICIAN: Hospitalist service. PROTOCOL: The patient was brought to the stress lab in a postoperative state, given 10 mCi of technetium 99m. The patient underwent rest imaging. The patient underwent Lexiscan stress test per standard protocol. At peak stress, the patient was given 26 mCi of technetium 99m. Shortly thereafter, the patient underwent stress imaging. Raw imaging reveals mild GI artifact, no significant motion artifact. SPECT imaging examined carefully in the horizontal long axis, vertical long axis, short axis views. There is normal mitral uptake of radioisotope in all reported segments. No evidence of significant fixed or reversible perfusion defects suggestive of prior infarction or ischemia. Gated wall motion reveals normal systolic thickening, calculated ejection fraction of 75%, no TID. CONCLUSIONS: 1. Normal myocardial perfusion scan without evidence of active ischemia or prior infarction. 2. Normal left ventricular systolic performance without evidence of transient ischemic dilatation or stress-induced segmental wall motion abnormalities. JOB# [id number] BARBARA/ARLYN
[2019-09-25 14:50] VITALS: BP 140/85
== END 2019-09-25 15:00 | disposition home or self-care (01) | DRG 391 ==
LOC: ED 20:01 → 4A 23:30 → OBSVTOIN 09-23 15:00
PROVIDERS: ADMIT Internal Medicine; ATTEND Internal Medicine
DX: K21.9 Gastro-esophageal reflux disease without esophagitis (principal); I21.4 Non-ST elevation (NSTEMI) myocardial infarction; E03.9 Hypothyroidism, unspecified; Z82.49 Family history of ischemic heart disease and other diseases of the circulatory system
CPT/HCPCS: 36415; 71046; 78452; 80048; 80061; 80076; 82550; 82553; 83690; 84484; 85025; 85027; 93005; 93010; 93017; 93306; G0378; A9270-GY; A9502; J1650; J2270; J2405; J2785